=== PATIENT | male | born 1940 | race Caucasian/White ===

== ENCOUNTER → 2018-03-20 | Outpatient (CLI) | payer MEDICARE, BC ==
[~2018-03-20] MED LIST: ASPIR-LOW81 MG PO; COUMADIN 6MG6 MG/TAB PO; DIGOXIN PO; FUROSEMIDE; LISINOPRIL PO; TOPROL XL50 MG PO
== END ==
LOC: COL.RAD 09:24
DX: N28.1 Cyst of kidney, acquired (principal); M54.5 Low back pain; Z96.0 Presence of urogenital implants; Z85.46 Personal history of malignant neoplasm of prostate

== ENCOUNTER → 2019-11-28 | Outpatient (CLI) | payer MEDICARE, BC | LOC: COL.VAS 08:45 | DX: I50.22 Chronic systolic (congestive) heart failure (principal); I08.3 Combined rheumatic disorders of mitral, aortic and tricuspid valves ==